=== PATIENT | female | born 1935 | race African-American/Black ===

== ENCOUNTER 2017-05-15 15:02 | Emergency (ER) | payer MEDICARE, OTHER ==
[~2017-05-15] VITALS: Ht 157.5 cm; Wt 86.2 kg
--- NOTE | ~2017-05-15 | CR181 ---
[facility] A Service of [facility] RADIOLOGY TEXT RESULTS PATIENT: SHAWN SOLOMON LOCATION: [facility] : 33 UNIT #: [id number] AGE: [address]: Savita Benjamin APRN SEX: F ORDER DR: [id number] [facility] [address] [place], [place] [address] [id number] E MR#: [id number] Acc #: [id number] NAME: SHAWN SOLOMON : 1935 SEX: F STUDY DATE/TIME: 05/15/2017 19:21 UNIT: [facility] ROOM: STUDY DESCRIPTION: CR Lumbar Spine 2 or 3 Views Attending Physician: Savita Benjamin A.P.R.N. Ordering Physician: Ed Edy Ca M.D. Primary Care Physician: Milton Donohue M.D. MEDICAL IMAGING REPORT This report is preliminary unless electronic signature is present EXAM Lumbar spine HISTORY Low back pain after a fall yesterday. COMMENT AP, lateral, lumbosacral views lumbar spine reviewed. There is a lumbar spine MRI from 2009 pending mu-ism. 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 Bones are osteopenic and there is acquired fusion appreciated with reversal of lumbar lordosis. It is not clear to me if the acquired fusion is postoperative or related to some inflammatory arthritis. Please correlate further clinically. There are vascular calcifications present. There is no obvious acute fracture. There is also an abdomen and pelvis CT scan from 03/14/2015. Review of those images shows no definite change in the appearance of the lumbar spine. IMPRESSION No definite acute fracture or malalignment lumbar spine. The appearance of the spine is abnormal with reversal of lumbar lordosis, multiple-level endplate spondylosis and loss of disc height, and an apparently acquired fusion of the posterior elements multiple levels. There is also levoconvex lumbar scoliosis. The bones are demineralized. No definite acute abnormalities appreciated. Comparison of these plain films is made back to the reformatted images from an abdomen and pelvis CT scan of 2014. Dictated by... Cindy Jenkins M.D. THIS IS AN ELECTRONICALLY VERIFIED REPORT Cindy Jenkins M.D. at 05/16/2017 2:51 PM [facility] A Service of [facility] & [facility] RADIOLOGY TEXT RESULTS PATIENT: SHAWN SOLOMON LOCATION: [facility] : 33 UNIT #: [id number] AGE: [address]: Savita Benjamin APRN SEX: F ORDER DR: RONALD/tyson TD: 05/16/2017 01:55 JOB #: [id number] MEDICAL IMAGING REPORT Page 1 of 1 COPY
--- NOTE | ~2017-05-15 | US85 ---
[facility] A Service of [facility] & [facility] RADIOLOGY TEXT RESULTS PATIENT: SHAWN SOLOMON LOCATION: [facility] : 33 UNIT #: [id number] AGE: [address]: Savita Benjamin APRN SEX: F ORDER DR: [id number] [facility] [address] [place], [place] [address] [id number] E MR#: [id number] Acc #: [id number] NAME: SHAWN SOLOMON : 1935 SEX: F STUDY DATE/TIME: 05/15/2017 18:01 UNIT: [facility] ROOM: STUDY DESCRIPTION: [facility] Attending Physician: Savita Benjamin A.P.R.N. Ordering Physician: Ed Edy Ca M.D. Primary Care Physician: Milton Donohue M.D. MEDICAL IMAGING REPORT This report is preliminary unless electronic signature is present EXAM Right lower extremity venous ultrasound HISTORY Right lower extremity swelling after fall 1 day ago. TECHNIQUE Venous ultrasound examination of the right lower extremity was performed using grayscale, spectral Doppler and color flow Doppler imaging. FINDINGS The examination is negative. There is no evidence of right lower extremity deep venous thrombus from the groin to the lower calf. Visualized greater saphenous vein is also patent. IMPRESSION Negative examination. No evidence of right lower extremity deep venous thrombosis. Dictated by... Bj Rajput M.D. THIS IS AN ELECTRONICALLY VERIFIED REPORT Bj Rajput M.D. at 05/16/2017 6:23 PM KAILEY/shefali TD: 05/16/2017 00:07 JOB #: [id number] MEDICAL IMAGING REPORT Page 1 of 1 COPY
--- NOTE | ~2017-05-15 | CR210 ---
[facility] A Service of [facility] RADIOLOGY TEXT RESULTS PATIENT: SHAWN SOLOMON LOCATION: [facility] : 33 UNIT #: [id number] AGE: [address]: Savita Benjamin APRN SEX: F ORDER DR: [id number] [facility] [address] [place], [place] [address] [id number] E MR#: [id number] Acc #: [id number] NAME: SHAWN SOLOMON : 1935 SEX: F STUDY DATE/TIME: 05/15/2017 18:24 UNIT: [facility] ROOM: STUDY DESCRIPTION: CR Ribs Uni 2 View W PA Ch Lt Attending Physician: Savita Benjamin A.P.R.N. Ordering Physician: Ed Edy Ca M.D. Primary Care Physician: Milton Donohue M.D. MEDICAL IMAGING REPORT This report is preliminary unless electronic signature is present EXAM PA chest with left ribs HISTORY Patient fell on 05/14/2017 and now has left rib pain. History of atrial fibrillation, scoliosis and diabetes. COMMENT Frontal view of the chest and 3 views left ribs are reviewed. There is comparison study from 12/20/2015 chest x-ray. There is mild cardiac silhouette enlargement, increased from previous. There is calcification of the aortic knob. There is evidence for old granulomatous disease. There is no acute-appearing parenchymal infiltrate, acute congestive failure, pneumothorax or pleural effusion. There are degenerative changes in the acromioclavicular joints. There is arthritis at the left shoulder. No displaced left rib fracture. IMPRESSION 1. No displaced left rib fracture. 2. Mild increasing cardiac silhouette enlargement, otherwise, no active disease is seen in the chest. 3. Partly seen is scoliosis levoconvex in the lumbar spine. There is degenerative change in the shoulders. Dictated by... Cindy Jenkins M.D. THIS IS AN ELECTRONICALLY VERIFIED REPORT Cindy Jenkins M.D. at 05/16/2017 2:50 PM [facility] A Service of [facility] RADIOLOGY TEXT RESULTS PATIENT: SHAWN SOLOMON LOCATION: [facility] : 33 UNIT #: [id number] AGE: [address]: Savita Benjamin APRN SEX: F ORDER DR: TD: 05/16/2017 01:40 JOB #: [id number] MEDICAL IMAGING REPORT Page 1 of 1 COPY
--- NOTE | ~2017-05-15 | CR20 ---
[facility] A Service of [facility] RADIOLOGY TEXT RESULTS PATIENT: SHAWN SOLOMON LOCATION: [facility] : 33 UNIT #: [id number] AGE: [address]: Savita Benjamin APRN SEX: F ORDER DR: [id number] [facility] [address] [place], [place] [address] [id number] E MR#: [id number] Acc #: [id number] NAME: SHAWN SOLOMON : 1935 SEX: F STUDY DATE/TIME: 05/15/2017 19:19 UNIT: [facility] ROOM: STUDY DESCRIPTION: CR Ankle Min 3 Views Lt Attending Physician: Savita Benjamin A.P.R.N. Ordering Physician: Ed Edy Ca M.D. Primary Care Physician: Milton Donohue M.D. MEDICAL IMAGING REPORT This report is preliminary unless electronic signature is present EXAM Left ankle 3 views HISTORY Ankle pain after fall today. FINDINGS Three views of the left ankle demonstrate soft tissue swelling about the ankle. Generalized demineralization. Transverse linear lucency and sclerosis in the distal fibula, 2 cm from the tip of the lateral malleolus. This could be secondary to old healed fracture. No definite acute fracture line is identified, but correlation to the patient's symptoms is recommended. Generalized demineralization. [id number] degenerative changes in the ankle. Mild varus angulation of the ankle could be due to positioning. Dictated by... Bj Rajput M.D. THIS IS AN ELECTRONICALLY VERIFIED REPORT Bj Rajput M.D. at 05/16/2017 6:25 PM DFL/psc TD: 05/16/2017 02:42 JOB #: [id number] MEDICAL IMAGING REPORT Page 1 of 1 COPY
--- NOTE | ~2017-05-15 | CR229 ---
[facility] A Service of [facility] & [facility] RADIOLOGY TEXT RESULTS PATIENT: SHAWN SOLOMON LOCATION: [facility] : 33 UNIT #: [id number] AGE: [address]: Savita Benjamin APRN SEX: F ORDER DR: [id number] [facility] [address] [place], [place] [address] [id number] E MR#: [id number] Acc #: [id number] NAME: SHAWN SOLOMON : 1935 SEX: F STUDY DATE/TIME: 05/15/2017 18:34 UNIT: [facility] ROOM: STUDY DESCRIPTION: CR Shoulder Min 2 View Lt Attending Physician: Savita Benjamin A.P.R.N. Ordering Physician: Ed Edy Ca M.D. Primary Care Physician: Milton Donohue M.D. MEDICAL IMAGING REPORT This report is preliminary unless electronic signature is present EXAM Left shoulder 3 views HISTORY Patient fell down yesterday and has left shoulder pain. COMMENT Three views left shoulder reviewed. Moderate degenerative change at the acromioclavicular joint. Milder degenerative change at the glenohumeral joint. Some irregularity at the greater tuberosity suggests presence of underlying rotator cuff disease. No acute fracture or dislocation. IMPRESSION No acute fracture, dislocation or radiopaque foreign body left shoulder. Plain film evidence for degenerative disease. Dictated by... Cindy Jenkins M.D. THIS IS AN ELECTRONICALLY VERIFIED REPORT Cindy Jenkins M.D. at 05/16/2017 2:50 PM RONALD/tyson TD: 05/16/2017 01:44 JOB #: [id number] MEDICAL IMAGING REPORT Page 1 of 1 COPY
--- NOTE | ~2017-05-15 | CR173 ---
[facility] A Service of [facility] & [facility] RADIOLOGY TEXT RESULTS PATIENT: SHAWN SOLOMON LOCATION: [facility] : 33 UNIT #: [id number] AGE: [address]: Savita Benjamin APRN SEX: F ORDER DR: [id number] [facility] [address] [place], [place] [address] [id number] E MR#: [id number] Acc #: [id number] NAME: SHAWN SOLOMON : 1935 SEX: F STUDY DATE/TIME: 05/15/2017 19:20 UNIT: [facility] ROOM: STUDY DESCRIPTION: CR Knee 3 Views Rt Attending Physician: Savita Benjamin A.P.R.N. Ordering Physician: Ed Edy Ca M.D. Primary Care Physician: Milton Donohue M.D. MEDICAL IMAGING REPORT This report is preliminary unless electronic signature is present EXAM Right knee 3 views HISTORY Pain after a fall yesterday. COMMENT Three views of the right knee are reviewed. There is a prior study of standing knees 03/14/2016. There is soft tissue edema and soft tissue swelling, and I believe there is a suprapatellar joint effusion. Bones are demineralized. 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 IMPRESSION Osteopenia, tricompartmental osteoarthritis, but no definite acute fracture or dislocation. There is a component of soft tissue edema diffusely as well as a suprapatellar joint effusion. Dictated by... Cindy Jenkins M.D. THIS IS AN ELECTRONICALLY VERIFIED REPORT Cindy Jenkins M.D. at 05/16/2017 2:51 PM [facility]/tyson TD: 05/16/2017 01:49 JOB #: [id number] MEDICAL IMAGING REPORT Page 1 of 1 COPY
--- NOTE | ~2017-05-15 | CR141 ---
[facility] A Service of [facility] & [facility] RADIOLOGY TEXT RESULTS PATIENT: SHAWN SOLOMON LOCATION: [facility] : 33 UNIT #: [id number] AGE: [address]: Savita Benjamin APRN SEX: F ORDER DR: [id number] [facility] [address] [place], [place] [address] [id number] E MR#: [id number] Acc #: [id number] NAME: SHAWN SOLOMON : 1935 SEX: F STUDY DATE/TIME: 05/15/2017 19:20 UNIT: [facility] ROOM: STUDY DESCRIPTION: CR Hand Min 3 Views Lt Attending Physician: Savita Benjamin A.P.R.N. Ordering Physician: Ed Edy Ca M.D. Primary Care Physician: Milton Donohue M.D. MEDICAL IMAGING REPORT This report is preliminary unless electronic signature is present EXAM Hand 3 views left. HISTORY Left hand pain after a fall yesterday. COMMENT Three views of the left hand are reviewed. There is no previous. There is severe arthritis at the first carpometacarpal joint with some subluxation. Osteoarthritis noted in general. No definite acute fracture, dislocation or radiopaque foreign body, but correlation with site of clinical tenderness would be helpful given the amount of distortion of the patient's anatomy by the osteoarthritic changes. IMPRESSION There is considerable osteoarthritis with most severe involvement at the first carpometacarpal joint with subluxation. No obvious acute fracture or dislocation, but please correlate with the site of clinical tenderness given the amount of anatomic distortion from the osteoarthritis. Dictated by... Cindy Jenkins M.D. THIS IS AN ELECTRONICALLY VERIFIED REPORT Cindy Jenkins M.D. at 05/16/2017 2:50 PM SAC/psc TD: 05/16/2017 01:46 JOB #: [id number] MEDICAL IMAGING REPORT Page 1 of 1 COPY
--- NOTE | ~2017-05-15 | CR172 ---
[facility] A Service of [facility] & [facility] RADIOLOGY TEXT RESULTS PATIENT: SHAWN SOLOMON LOCATION: [facility] : 33 UNIT #: [id number] AGE: [address]: Savita Benjamin APRN SEX: F ORDER DR: [id number] [facility] [address] [place], [place] [address] [id number] E MR#: [id number] Acc #: [id number] NAME: SHAWN SOLOMON : 1935 SEX: F STUDY DATE/TIME: 05/15/2017 19:21 UNIT: [facility] ROOM: STUDY DESCRIPTION: CR Knee 3 Views Lt Attending Physician: Savita Benjamin A.P.R.N. Ordering Physician: Ed Edy Ca M.D. Primary Care Physician: Milton Donohue M.D. MEDICAL IMAGING REPORT This report is preliminary unless electronic signature is present EXAM Knee, 3 views left HISTORY Patient fell. Trauma. Fell yesterday with pain in the left knee. COMMENT 3 views left knee reviewed. There is mild tricompartmental osteoarthritis. No definite joint effusion. Bones are mildly demineralized. There are some vascular calcifications. There is no acute fracture or dislocation. IMPRESSION No acute fracture or dislocation left knee. Milder tricompartmental osteoarthritis. Dictated by... Cindy Jenkins M.D. THIS IS AN ELECTRONICALLY VERIFIED REPORT Cindy Jenkins M.D. at 05/16/2017 2:51 PM RONALD/shefali TD: 05/16/2017 01:51 JOB #: [id number] MEDICAL IMAGING REPORT Page 1 of 1 COPY
[~2017-05-15 15:02] MED LIST: ASPIRIN PO; ASPIRIN81 M2 PO; DARVON65 MG PO; GABAPENTIN600 MG PO; GLUCOPHAGE500 MG PO; IBUPROFEN PO; LIPITOR PO; LORTAB 10-3251 EACH PO; LORTAB 5-325 M1 EACH PO; METFORMIN HCL500 M2 PO; METOPROLOL SUCC50 MG PO; MULTI-VITAMIN1 TAB PO; NEPHROCAPS CAPSU1 MG PO; NEURONTIN PO; PRILOSEC PO; PRILOSEC20 M1 PO; SIMVASTATIN5 MG PO; TOPROL XL PO; TRIAMTERENE/HCTZ PO
== END 2017-05-15 20:20 | disposition home or self-care (01) ==
LOC: CED 15:02 → CFTX 15:02
DX: S33.5XXA Sprain of ligaments of lumbar spine, initial encounter (principal); S63.615A Unspecified sprain of left ring finger, initial encounter; S80.02XA Contusion of left knee, initial encounter; S80.01XA Contusion of right knee, initial encounter; S40.012A Contusion of left shoulder, initial encounter; I11.0 Hypertensive heart disease with heart failure; I48.91 Unspecified atrial fibrillation; M41.9 Scoliosis, unspecified; K21.9 Gastro-esophageal reflux disease without esophagitis; W19.XXXA Unspecified fall, initial encounter; Y92.009 Unspecified place in unspecified non-institutional (private) residence as the place of occurrence of the external cause
CPT/HCPCS: 29130; 71101; 72100; 73030; 73130; 73562; 73610; 93971; 99284